=== PATIENT | male | born 1950 | race Caucasian/White ===

== ENCOUNTER → 2016-10-17 | Outpatient (CLI) | payer MEDICARE, OTHER ==
--- NOTE | 2016-10-17 10:18 | CT ---
EXAMINATION TYPE: CT brain wo con DATE OF EXAM: 10/17/2016 10:13 AM COMPARISON: NONE HISTORY: syncope, WOODS, episode of slurred speech CT DLP: 945.[address] of the brain was performed. The ventricles, basal cisterns and sulci overlying the cerebral convexities demonstrate mild enlargem ent. There is no evidence for intracranial hemorrhage or sulcal effacement. There is decreased attenuation about the periventricular white matter and deep white matter of both c erebral hemispheres, compatible with chronic small vessel ischemia. Differential diagnosis does inclu de demyelination. No mass effects are seen.No midline shift. Osseous calvarium is intact. If symptoms persist consider MRI. IMPRESSION: 1. Age related atrophic and chronic small vessel ischemic change without acute intracranial process s een at this time.
== END | disposition home or self-care (01) ==
LOC: RADCTMAIN 09:53
PROVIDERS: ATTEND Internal Medicine
DX: G31.1 Senile degeneration of brain, not elsewhere classified (principal); I67.82 Cerebral ischemia
CPT/HCPCS: 70450

== ENCOUNTER 2016-11-23 09:01 | Day surgery (SDC) | payer MEDICARE, OTHER ==
[2016-11-23 09:25] VITALS: BP 143/85; PULSE 67; RESP 18; TEMP 98.7
[2016-11-23] MEDS ORDERED: SODIUM CHLORIDE 0.9% 1,000 ML IV ONE (09:25)
--- NOTE | 2016-11-23 15:21 | CE ---
DATE OF SERVICE: Mr. See is a 66-year-old male patient who was referred by Dr. Bloom for recurrent dizzy spells. He underwent a tilt table test placement. Blood pressure was 133/77 mmHg, baseline heart rate is 67 beats a minute. Patient was tilted upright at an angle of 70 degrees per protocol. Towards the very end of the procedure, the patient experienced a sudden drop in heart rate and blood pressure. This drop was simultaneous and there was no preceding sinus tachycardia and he was laid supine at the end of the procedure and his blood pressure normalized. The lowest heart rate 41 beats a minute. IMPRESSION: Mixed neurocardiogenic response to upright tilting.
== END 2016-11-23 11:30 | disposition home or self-care (01) ==
LOC: CATHEP 09:01
PROVIDERS: ATTEND Internal Medicine Clinical Cardiac Electrophysiology
DX: R55 Syncope and collapse (principal)
CPT/HCPCS: 93005; 93660

== ENCOUNTER → 2016-11-30 | Outpatient (CLI) | payer MEDICARE, OTHER ==
[2016-11-30 16:26] LABS: Blood Urea Nitrogen 17 mg/dL (9-20); Non-African American GFR(MDRD) >60 (>60 ml/min/1.73 sqM)
--- NOTE | 2016-11-30 18:36 | CT ---
EXAMINATION TYPE: CT angio neck DATE OF EXAM: 11/30/2016 5:05 PM COMPARISON: NONE HISTORY: Syncope and collapse. CT DLP: 297.40 mGycm Automated exposure control for dose reduction was used. TECHNIQUE: Performed with IV Contrast, patient injected with 65 mL of Omnipaque 350. . FINDINGS: There are 3-D post processed images. There is normal branching pattern of the great vessels on the aortic arch. There is arterial flow in both vertebral arteries. Right vertebral artery is larger than the left. There is arterial flow in the common internal and external carotid arteries bilaterally. There is min imal plaque at the right and left carotid artery bifurcations. There is patency of the basilar artery . There is patency of the posterior and middle cerebral arteries. IMPRESSION: MILD ATHEROSCLEROTIC CALCIFICATION AT THE CAROTID ARTERY BIFURCATIONS. NO EVIDENCE OF HEMODYNAMICALLY SIGNIFICANT STENOSIS. THERE IS LUMEN NARROWING OF LESS THAN 20% IN BOTH INTERNAL CAROTID ARTERIES. B ILATERAL PATENCY NOTED IN THE VERTEBRAL ARTERIES.
--- NOTE | 2016-11-30 22:22 | US ---
EXAMINATION TYPE: US carotid duplex BILAT DATE OF EXAM: 11/30/2016 4:34 PM COMPARISON: NONE CLINICAL HISTORY: 66-year-old male R55 Syncope, dizziness. TECHNIQUE: Cardiac duplex ultrasound examination. Indirect Doppler criteria was utilized. FINDINGS: Grayscale images demonstrate some moderate atherosclerotic change at the bifurcations. EXAM MEASUREMENTS: RIGHT: Peak Systolic Velocity (PSV) cm/sec ----- Right CCA: 57.5 ----- Right ICA: 54.7 ----- Right ECA: 108.7 ICA/CCA ratio: 1.0 RIGHT: End Diastole cm/sec ----- Right CCA: 13.9 ----- Right ICA: 8.1 ----- Right ECA: 13.6 LEFT: Peak Systolic Velocity (PSV) cm/sec ----- Left CCA: 55.9 ----- Left ICA: 70.6 ----- Left ECA: 77.1 ICA/CCA ratio: 1.3 LEFT: End Diastole cm/sec ----- Left CCA: 13.2 ----- Left ICA: 21.0 ----- Left ECA: 11.1 VERTEBRALS (direction of flow): Right Vertebral: Antegrade Left Vertebral: Antegrade IMPRESSION: No hemodynamically significant stenosis appreciated in either proximal ICA. Criteria for Assigning % of Stenosis / Diameter reduction (Estimation based on the indirect measurements of the internal carotid artery velocities (ICA PSV). 1. Normal (no stenosis)=ICA PSV < 125 cm/s: ratio < 2.0: ICA EDV<40 cm/s. 2. Less than 50% stenosis=ICA PSV < 125 cm/s: ratio < 2.0: ICA EDV<40 cm/s. 3. 50 to 69% stenosis=ICA PSV of 125 to 230 cm/s: ration 2.0 ? 4.0: ICA EDV 40-100 cm/s. 4. Greater than 70% stenosis to near occlusion= ICA PSV > 230 cm/s: ratio > 4.0: ICA EDV > 100 cm/s. 5. Near occlusion= ICA PSV velocities may be low or undetectable: variable ratio and ICA EDV. 6. Total occlusion=unable to detect flow.
== END ==
LOC: RADUSMAIN 15:42
PROVIDERS: ATTEND Psychiatry & Neurology Neurology
DX: I65.29 Occlusion and stenosis of unspecified carotid artery (principal); R55 Syncope and collapse
CPT/HCPCS: 82565; 84520; 93880; 70498; 36415; Q9967

== ENCOUNTER → 2016-12-04 | Outpatient (CLI) | payer MEDICARE, OTHER ==
--- NOTE | 2016-12-04 11:36 | MR ---
EXAMINATION TYPE: MR brain wo/w cspine wo DATE OF EXAM: 12/04/2016 10:54 AM COMPARISON: CT brain October 17, 2016. CTA neck November 30, 2016. HISTORY: Syncope per order. Dizziness with sore neck causing pain or weakness in bilateral arms and f ingers for 4 months per patient. TECHNIQUE: Multiplanar, multisequence images of the brain and brainstem is performed without and with IV contra st, utilizing 20 mL intravenous MultiHance . Multiplanar, multisequence imaging of the cervical spine is performed without contrast. FINDINGS: BRAIN: Diffusion weighted images demonstrate no evidence of a recent infarct or other diffusion abnormality. There is no worrisome extra-axial fluid collection. The ventricular system and cisternal spaces ar e normal in size and appearance. The brain volume is age appropriate. There are some scattered foci T2 hyperintensity seen throughout the deep and periventricular white matter, approximately 30-40 scat tered lesions are felt present. Lesions are nonspecific in appearance and distribution but most likel y on basis of product of chronic small vessel ischemic change in patient of this age. Old lacunar inf arct left basal ganglion on axial image 19 is redemonstrated correlates with axial image [address] Smaller lacunar infarct right garcia radiata on axial image 20 is also noted. Midline structures demonstrate normal morphology. The craniocervical junction appears within normal limits. Post contrast images demonstrate no abnormal enhancement. The dural venous sinuses appear pa tent. The visualized sinuses are clear and the globes are intact. IMPRESSION: Moderate nonspecific white matter changes presumed on basis of product of chronic small v essel ischemic change. Old lacunar infarcts are noted. C-SPINE: FINDINGS: Sagittal images of the cervical spine show the craniocervical junction to appear within nor mal limits. The cervical and upper thoracic spinal cord is normal in course, caliber, and signal. V ertebral alignment is anatomic. The vertebral body heights are normal. There is mild disc space narr owing C4-C5 level. There is moderate disc space narrowing C5-C6 level. There is moderate to severe di sc space narrowing C6-C7 level. Posterior spur disc complexes are seen at these levels on sagittal im ages. The bone marrow signal intensity is within normal limits. There is mild to moderate multilevel anterior spurring most prominent in the mid to lower cervical spine redemonstrated. Axial images show the C2-C3 and C3-C4 levels to appear within normal limits. Axial images at C4-C5 level show right paracentral/foraminal spur disc complex effacing anterolateral thecal sac and causing moderate right-sided neural foraminal narrowing on axial image 32. There is m ild left-sided neural foraminal narrowing noted due to less prominent eccentric spur disc complex. Axial images at C5-C6 level show prominent right paracentral/foraminal spur disc complex effacing ant erolateral thecal sac and causing severe right-sided neural foraminal narrowing on axial image 25. Th ere is moderate left-sided neural foraminal narrowing due to less prominent foraminal spur disc compl ex. Axial images at C6-C7 level show broad-based posterior spur disc complex effacing anterior thecal sac and causing advanced left and moderate right-sided neural foraminal narrowing on axial image 17. Axial images at C7-T1 level are felt within normal limits. IMPRESSION: Multilevel degenerative changes in the cervical spine most prominent at C4-C5 through C6- C7 levels as detailed above, findings correlate with recent CTA neck exam.
== END ==
LOC: RADMRIMAIN 09:30
PROVIDERS: ATTEND Psychiatry & Neurology Pain Medicine
DX: R55 Syncope and collapse (principal); M48.02 Spinal stenosis, cervical region
CPT/HCPCS: 70553; 72141; A9577

== ENCOUNTER → 2016-12-30 | Outpatient (CLI) | payer MEDICARE, OTHER ==
[2016-12-30 08:11] LABS: Cholesterol 213 mg/dL (<200); HDL Cholesterol 37 mg/dL (40-60); Triglycerides 109 mg/dL (<150)
== END | disposition home or self-care (01) ==
LOC: LABWHC1 07:00
PROVIDERS: ATTEND Psychiatry & Neurology Pain Medicine
DX: I63.9 Cerebral infarction, unspecified (principal); Z79.899 Other long term (current) drug therapy
CPT/HCPCS: 36415; 80061

== ENCOUNTER → 2017-05-06 | Outpatient (CLI) | payer MEDICARE, OTHER ==
[2017-05-06 09:06] LABS: Cholesterol 163 mg/dL (<200); HDL Cholesterol 42 mg/dL (40-60)
== END | disposition home or self-care (01) ==
LOC: LABWHC1 08:15
PROVIDERS: ATTEND Psychiatry & Neurology Pain Medicine
DX: I63.9 Cerebral infarction, unspecified (principal)
CPT/HCPCS: 36415; 80061

== ENCOUNTER → 2018-10-20 | Outpatient (CLI) | payer MEDICARE, OTHER ==
--- NOTE | 2018-10-20 09:27 | US ---
EXAMINATION TYPE: US prostate transrectal DATE OF EXAM: 10/20/2018 COMPARISON: NONE CLINICAL HISTORY: R97.2 Elevated PSA. Elevated PSA This examination was performed using the transrectal probe. EXAM MEASUREMENTS: Gland Size: 4.7 x 4.2 x 3.4 cm Volume: 34.30 mL Predicted PSA: 4.1 Actual PSA (if available):5.5 Peripheral zone appears heterogenous. No prominent masses or lesions seen in peripheral zone. IMPRESSION: 1. Discordant actual PSA and predicted PSA with glandular heterogeneity. Consider random biopsy or sh ort-term follow-up and serial PSA measurement. Predicted PSA = volume x 0.12 ng/ml Calculated Volume = 0.5236 x L x W x H
--- NOTE | 2018-10-20 09:32 | US ---
EXAMINATION TYPE: US liver DATE OF EXAM: 10/20/2018 COMPARISON: NONE CLINICAL HISTORY: R94.5 Ab LFT's. abnormal labs EXAM MEASUREMENTS: Liver Length: 15.9 cm Gallbladder Wall: 0.2 cm CHD: 0.3 cm Right Kidney: 10.6 x 5.5 x 5.9 cm Pancreas: Limited visualization due to overlying bowel gas. Tail obscured by overlying bowel gas Liver: wnl Gallbladder: wnl Evidence for sonographic Jackson's sign: neg CBD: Obscured by overlying bowel gas CHD: wnl Right Kidney: wnl IMPRESSION: No distinct abnormality.
== END | disposition home or self-care (01) ==
LOC: RADUSMAIN 08:02
PROVIDERS: ATTEND Internal Medicine
DX: R97.20 Elevated prostate specific antigen [PSA] (principal); R94.5 Abnormal results of liver function studies
CPT/HCPCS: 76705; 76872

== ENCOUNTER 2021-07-29 19:08 | Emergency (ER) | payer MEDICARE, OTHER ==
[2021-07-29 20:48] VITALS: RESP 18
[2021-07-29] MEDS ORDERED: KETOROLAC 15 MG/ML 1 ML VIAL IM STA (21:07)
[2021-07-29] MEDS ORDERED: DIPH,PERTUS(ACELL)TETVAC-LF 0.5 ML VIAL IM ONE (21:07)
[2021-07-29] MEDS ORDERED: ceFAZolin 1,000 MG VIAL (IM USE) IM STA (21:07)
--- NOTE | 2021-07-29 21:28 | ED ---
General Adult HPI - General Chief complaint: Trauma Stated complaint: finger tip injury/lac Time Seen by Provider: 07/29/21 21:01 Source: patient Mode of arrival: ambulatory Limitations: no limitations - History of Present Illness Initial comments: 70-year-old male patient presents to the emergency department today for evaluation of right middle finger injury. Patient states that he was cutting wood with a skill saw when he missed and got his finger. States he is having significant pain to the area. He states he believes his last tetanus vaccine w as around 10 years ago. Denies taking anything for pain. Denies any use of blood thinning medications. He denies cleansing the area. Denies any other injuries or concerns. - Related Data Home Medications Medication Instructions Recorded Confirmed Multivit-Min/FA/Lycopen/Lutein 1 tab PO DAILY 11/23/16 07/29/21 [Centrum Silver Tablet] Aspirin EC [Ecotrin Low Dose] 81 mg PO DAILY 07/29/21 07/29/21 Atorvastatin [Lipitor] 20 mg PO HS 07/29/21 07/29/21 Losartan Potassium 50 mg PO DAILY 07/29/21 07/29/21 Previous Rx's Medication Instructions Recorded Cephalexin [Keflex] 500 mg PO BID #14 cap 07/29/21 Allergies Allergy/AdvReac Type Severity Reaction Status Date / Time No Known Allergies Allergy Verified 07/29/21 22:33 Review of Systems ROS Statement: Those systems with pertinent positive or pertinent negative responses have been documented in the HPI. ROS Other: All systems not noted in ROS Statement are negative. Past Medical History Past Medical History: No Reported History History of Any Multi-Drug Resistant Organisms: None Reported Past Surgical History: No Surgical Hx Reported Past Psychological History: No Psychological Hx Reported Smoking Status: Never smoker Past Alcohol Use History: None Reported, Occasional Past Drug Use History: None Reported General Exam Limitations: no limitations General appearance: alert, in no apparent distress, other (This is a well- developed, well-nourished adult male patient in no acute distress.) Respiratory exam: Present: normal lung sounds bilaterally. Absent: respiratory distress, wheezes, rales, rhonchi, stridor Cardiovascular Exam: Present: regular rate, normal rhythm, normal heart sounds. Absent: systolic murmur, diastolic murmur, rubs, gallop, clicks Extremities exam: Present: full ROM, normal capillary refill, other (There is laceration and injury noted to the distal tip of the right middle finger. Nail appears intact. Distal tip is tender to touch. Radial pulses intact. Skin is otherwise pink, warm, dry.). Absent: tenderness, pedal edema, joint swelling, calf tenderness Neurological exam: Present: alert, oriented X3, CN II-XII intact Psychiatric exam: Present: normal affect, normal mood Skin exam: Present: warm, dry, intact, normal color. Absent: rash Course Vital Signs 07/29/21 07/29/21 07/29/21 20:46 21:50 23:25 Temperature 98.3 F 98.1 F Pulse Rate 86 79 75 Respiratory 18 18 18 Rate Blood Pressure 156/90 168/81 160/76 O2 Sat by Pulse 95 93 L 98 Oximetry Procedures - Laceration Laceration #1 Consent Obtained: verbal consent Indication: laceration Site: hand (Right middle finger) Size (cm): 3 Description: flap Depth: simple, single layer Anesthetic Used: lidocaine 1% Anesthesia Technique: nerve block Amount (mls): 6 Pre-repair: irrigated extensively Type of Sutures: nylon Size of Sutures: 5-0 Number of Sutures: 8 Technique: simple, interrupted Patient Tolerated Procedure: well, no complications Medical Decision Making - Medical Decision Making 70-year-old male patient presents to the emergency department today for evaluation of right middle finger injury. Physical examination did reveal near distal tip amputation. Xray did show comminuted tuft fracture. Patient was given IM kefzol and started on keflex. I did cleanse and close the laceration. Tip of finger was pale, I informed him that this likely would not revascularize and he would need to see orthopedics for management. He is given pain medication for home. He is instructed to follow-up with property preservation specialist for further evaluation as soon as possible. Return parameters were discussed in detail. He verbalizes understanding and agrees with this plan. Case discussed with my attending Dr. Mendez. - Radiology Data Radiology results: report reviewed, image reviewed History of the right middle finger is obtained. Report reviewed in its entirety. Impression by Dr. Mejía shows laceration of the distal third digit with open comminuted fracture of the distal phalangeal tuft. Disposition Clinical Impression: Laceration of right middle finger, Fracture of distal phalanx of right middle finger Disposition: HOME SELF-CARE Condition: Good Instructions (If sedation given, give patient instructions): Care For Your Stitches (ED), Laceration (ED), Finger Fracture (ED) Additional Instructions: Take antibiotics as directed. Follow-up with property preservation specialist for further evaluation of the finger as soon as possible. Return to the emergency department for any new, worsening, or concerning symptoms. Prescriptions: Cephalexin [Keflex] 500 mg PO BID #14 cap Is patient prescribed a controlled substance at d/c from ED?: No Referrals: Anayeli Colvin MD [Primary Care Provider] - 1-2 days Shai Ellis MD [STAFF PHYSICIAN] - 1-2 days Time of Disposition: 23:04
[2021-07-29] MEDS ORDERED: LIDOCAINE 1% INJ 10MG/ML (20 ML MDV) SQ ONE (22:01)
--- NOTE | 2021-07-29 22:02 | XR ---
EXAMINATION TYPE: XR finger RT DATE OF EXAM: 07/29/2021 COMPARISON: NONE HISTORY: . Right middle finger injury. TECHNIQUE: Frontal, lateral, oblique coned-down views of the third digit of the right hand FINDINGS: There is a comminuted displaced fracture of the tuft of the distal phalanx of the third dig it. There is associated soft tissue irregularity and laceration. No radiopaque metallic foreign body. No dislocation. Joint spaces and alignment are normal. Normal mineralization. IMPRESSION: Laceration of the distal third digit with open comminuted fracture of the distal phalangeal tuft.
[2021-07-29] MEDS ORDERED: ACET/COD 300 MG/30 MG STARTER PACK 6 TAB BTL PO STA (23:04)
[2021-07-30 00:22] VITALS: BP 160/76; PULSE 75; TEMP 98.1
== END 2021-07-29 23:26 | disposition home or self-care (01) ==
LOC: EC 19:08
DX: S62.632B Displaced fracture of distal phalanx of right middle finger, initial encounter for open fracture (principal); Z23 Encounter for immunization; Z79.82 Long term (current) use of aspirin; Z79.899 Other long term (current) drug therapy; W27.0XXA Contact with workbench tool, initial encounter
CPT/HCPCS: 73140; 90715; 12002; 90471; 96372 ×2; 99283; J0690; J2001; J1885

== ENCOUNTER 2024-12-23 12:15 | Emergency (ER) | payer MEDICARE, OTHER ==
--- NOTE | 2024-12-23 12:59 | ED ---
General Adult HPI - General Chief complaint: Urogenital Stated complaint: unable to urinate Time Seen by Provider: 12/23/24 12:21 Source: patient Mode of arrival: ambulatory Limitations: no limitations - History of Present Illness Initial comments: Dictation was produced using [employer] dictation software. please excuse any grammatical, word or spelling errors. Chief Complaint: 74-year-old male with urinary retention History of Present Illness: Patient 74-year-old male presents with urinary retention. Patient states he has had difficulty urinating chronically. States that he last urinated at 1 AM last night. Took some of his friends Flomax however symptoms did not improve. Complains of suprapubic fullness. The ROS documented in this emergency department record has been reviewed and confirmed by me. Those systems with pertinent positive or negative responses have been documented in the HPI. All other systems are other negative and/or n oncontributory. - Related Data Home Medications Medication Instructions Recorded Confirmed Losartan Potassium 50 mg PO DAILY 07/29/21 10/24/24 Sildenafil Citrate [Viagra] 100 mg PO DAILY PRN 10/24/24 10/24/24 valACYclovir HCL [Valtrex] 1,000 mg PO DAILY 10/24/24 10/24/24 Previous Rx's Medication Instructions Recorded Aspirin 81 mg PO DAILY 14 Days #28 tab 10/26/24 Atorvastatin [Lipitor] 40 mg PO HS 14 Days #28 tablet 10/26/24 Clopidogrel [Plavix] 75 mg PO DAILY 14 Days #28 tab 10/26/24 Allergies Allergy/AdvReac Type Severity Reaction Status Date / Time No Known Allergies Allergy Verified 12/23/24 12:18 Review of Systems ROS Statement: Those systems with pertinent positive or pertinent negative responses have been documented in the HPI. ROS Other: All systems not noted in ROS Statement are negative. Past Medical History Past Medical History: Hyperlipidemia, Hypertension Additional Past Medical History / Comment(s): BPH History of Any Multi-Drug Resistant Organisms: None Reported Past Surgical History: No Surgical Hx Reported Past Anesthesia/Blood Transfusion Reactions: No Reported Reaction Past Psychological History: No Psychological Hx Reported Smoking Status: Former smoker Past Alcohol Use History: Occasional Past Drug Use History: None Reported - Past Family History Father Family Medical History: Cancer, Diabetes Mellitus, Hypertension Mother Additional Family Medical History / Comment(s): Heart valve disorder - unknown General Exam - General Exam Comments Initial Comments: PHYSICAL EXAM: General Impression: Alert and oriented x3, not in acute distress HEENT: Normocephalic atraumatic, extra-ocular movements intact, pupils equal and reactive to light bilaterally, mucous membranes moist. Cardiovascular: Heart regular rate and rhythm Chest: Able to complete full sentences, no retractions, no tachypnea Abdomen: abdomen soft, suprapubic fullness, non-distended, no organomegaly Musculoskeletal: Pulses present and equal in all extremities, no peripheral edema Motor: no focal deficits noted Neurological: CN II-XII grossly intact, no focal motor or sensory deficits noted Skin: Intact with no visualized rashes Psych: Normal affect and mood Limitations: no limitations Course Vital Signs 12/23/24 12:16 Temperature 97.6 F Pulse Rate 110 H Respiratory 24 Rate Blood Pressure 204/110 O2 Sat by Pulse 99 Oximetry Medical Decision Making - Medical Decision Making Was pt. sent in by a medical professional or institution (, PA, [employer] DEVELOPER, urgent care, hospital, or intermediate...) When possible be specific @ -No Did you speak to anyone other than the patient for history (EMS, parent, family, police, friend...)? What history was obtained from this source @ -No Did you review nursing and triage notes (agree or disagree)? Why? @ -I reviewed and agree with nursing and triage notes Were old charts reviewed (outside hosp., previous admission, EMS record, old EKG, old radiological studies, urgent care reports/EKG's, intermediate records)? Report findings @ -No old charts were reviewed Differential Diagnosis (chest pain, altered mental status, abdominal pain women, abdominal pain men, vaginal bleeding, musculoskeletal, weakness, fever, dyspnea, syncope, headache, dizziness, GI bleed, back pain, seizure, CVA, palpatations, mental health)? @ -Differential Abdominal Pain Men: Appendicitis, cholecystitis, diverticulosis, ischemic bowel, pancreatitis, hepatitis, UTI, gastroenteritis, AAA, incarcerated hernia, bowel obstruction, constipation, inflammatory bowel, hepatitis, peptic ulcer disease, splenic infarction, perforated viscus, testicular torsion, this is not meant to be an all-inclusive list EKG interpreted by me (3pts min.). @ -None done X-rays interpreted by me (1pt min.). @ -None done CT interpreted by me (1pt min.). @ -None done U/S interpreted by me (1pt. min.). @ -None done What testing was considered but not performed or refused? (CT, X-rays, U/S, labs)? Why? @ -None What meds were considered but not given or refused? Why? @ -None Was smoking cessation discussed for >3mins.? @ -No Were there social determinants of health that impacted care today? How? (Homelessness, low income, unemployed, alcoholism, drug addiction, transportation, low edu. Level, literacy, decrease access to med. care, fpc, rehab)? @ -No Was there de-escalation of care discussed even if they declined (Discuss DNR or withdrawal of care, Hospice)? DNR status @ -No What co-morbidities impacted this encounter? (DM, HTN, Smoking, COPD, CAD, Cancer, CVA, ARF, Chemo, Hep., AIDS, mental health diagnosis, sleep apnea, morbid obesity)? @ -None Was patient admitted / discharged? Hospital course, mention meds given and route, prescriptions, significant lab abnormalities, going to OR and other pertinent info. @ -74-year-old male with urinary retention. Elevated urine and bladder scan. Vital signs are stable. Gillespie catheter placed. Large amount of urine removed. Patient reports significant improvement of symptoms. Patient discharged with Gillespie catheter and urology consultation. Did you discuss the management of the patient with other professionals (professionals i.e. , PA, [employer] DEVELOPER, lab, RT, psych nurse, clinical social work therapist, middle school math teacher, teacher, disabilities services officer, case filler)? Give summary @ -No Was critical care preformed (if so, how long)? @ -No Undiagnosed new problem with uncertain prognosis? @ -No Drug Therapy requiring intensive monitoring for toxicity (Heparin, Nitro, Insulin, Cardizem)? @ -No Were any procedures done? @ -No Diagnosis/symptom? Acute, or Chronic, or Acute on Chronic? Uncomplicated (without systemic symptoms) or Complicated (systemic symptoms)? @ -Urinary retention Side effects of treatment? @ -No Exacerbation, Progression, or Severe Exacerbation? @ -No Poses a threat to life or bodily function? How? (Chest pain, [place], [place], pneumonia, PE, COPD, DKA, ARF, appy, cholecystitis, CVA, Diverticulitis, Homicidal, Suicidal, threat to staff... and all critical care pts) @ -No Disposition Clinical Impression: Urinary retention Disposition: HOME SELF-CARE Condition: Fair Instructions (If sedation given, give patient instructions): Urinary Retention in Men (ED), Gillespie Catheter Placement and Care (ED) Is patient prescribed a controlled substance at d/c from ED?: No Referrals: Caden Johnson MD [STAFF PHYSICIAN] - 1-2 days Time of Disposition: 12:59
[2024-12-23 13:05] LABS: Appearance,Urine Clear (Clear); Bilirubin,Urine Negative (Negative); Blood,Urine Moderate (Negative); Color,Urine Colorless; Glucose,Urine (UA) Negative (Negative); Hyaline Casts,Urine 1 /lpf (0-2); Ketones,Urine Negative (Negative); Leukocyte Esterase,Urine Negative (Negative); Mucus,Urine Rare /hpf; Nitrite,Urine Negative (Negative); Protein,Urine Negative (Negative); RBC,Urine 16 /hpf (0-5); Urobilinogen,Urine <2.0 mg/dL (<2.0); WBC,Urine 1 /hpf (0-5)
[2024-12-23 13:54] VITALS: BP 186/89; PULSE 96; RESP 20; TEMP 98
== END 2024-12-23 13:54 | disposition home or self-care (01) ==
LOC: EC 12:15
DX: R33.9 Retention of urine, unspecified (principal); Z87.891 Personal history of nicotine dependence
CPT/HCPCS: 51702; 51798; 81001; 99283